=== PATIENT | female | born 1970 ===

== ENCOUNTER 2017-07-31 12:57 | Emergency (ER) | payer MEDICAID ==
[2017-07-31 13:14] VITALS: O2SAT 100
[2017-07-31] MEDS ORDERED: Lidocaine 5% Patch TD STA (13:29)
[2017-07-31] MEDS ORDERED: Lidocaine 5% Patch TD ONE (13:35)
--- NOTE | 2017-07-31 13:39 | C.PDOC ---
History Of Present Illness 46 years old female presents to the ED complaining of flank pain onset 2 days. Patient reports pain is sharp when she lays down. She admits taking Aspirin with no relief. Patient denies any injury. PMD: non provided Time Seen by Provider: 07/31/17 13:14 Chief Complaint (Nursing): Back Pain History Per: Patient History/Exam Limitations: no limitations Onset/Duration Of Symptoms: Days (2) Quality Of Discomfort: Sharp Past Medical History Reviewed: Historical Data, Nursing Documentation, Vital Signs Vital Signs: Last Vital Signs Temp 98.4 F 07/31/17 13:13 Pulse 71 07/31/17 13:13 Resp 16 07/31/17 13:13 BP 131/86 07/31/17 13:13 Pulse Ox 100 07/31/17 13:42 - Medical History PMH: No Chronic Diseases Surgical History: No Surg Hx Family History: States: Unknown Family Hx - Social History Hx Tobacco Use: No Hx Alcohol Use: Yes Hx Substance Use: No Review Of Systems Except As Marked, All Systems Reviewed And Found Negative. Musculoskeletal: Positive for: Back Pain (Flank pain) Physical Exam - Physical Exam Appears: Non-toxic, No Acute Distress Skin: Normal Color Back: Normal Inspection, No CVA Tenderness ED Course And Treatment O2 Sat by Pulse Oximetry: 100 (RA) Pulse Ox Interpretation: Normal Medical Decision Making Medical Decision Making: Time: 1328 Initial plan: --Motrin 600 mg PO --Tylenol 325 mg PO --Lidocaine 5% Disposition Counseled Patient/Family Regarding: Need For Followup, Rx Given - Disposition Disposition: HOME/ ROUTINE Disposition Time: 14:11 Condition: STABLE Prescriptions: Ibuprofen [Motrin] 600 mg PO TID #15 tab Instructions: Low Back Pain (DC) Forms: General Discharge Instructions - Clinical Impression Clinical Impression: Low back pain - Scribe Statement The provider has reviewed the documentation as recorded by the Scribe (Racquel Estrada)
[2017-07-31 14:31] VITALS: BP 132/82; PULSE 61; RESP 18; TEMP 99
== END 2017-07-31 14:29 | disposition home or self-care (01) ==
LOC: C.ER 12:57
DX: M54.5 Low back pain (principal)